=== PATIENT | male | born 1995 | race Caucasian/White ===

== ENCOUNTER 2017-09-22 02:47 | Emergency (ER) | payer OTHER ==
[2017-09-22] MEDS ORDERED: Azithromycin TAB* 250 MG PO ONE (04:16)
[2017-09-22] MEDS ORDERED: cefTRIAXone VIAL(*) 250 MG VIAL IM ONE (04:16)
[2017-09-22] MEDS ORDERED: Cephalexin CAP* 500 MG PO ONE (04:16)
[2017-09-22] MEDS ORDERED: Sulfamethox/Trimethoprim DS 800/160* TAB PO ONE (04:16)
--- NOTE | 2017-09-22 04:26 | ED ---
Suellen Mckeon Emily, scribed for Cl Hooper MD on 09/22/17 at 0408 . Skin Complaint - HPI Summary HPI Summary: This patient is a 22 year old M presenting to [facility] with a chief complaint of pain and swelling on R buttock that began one week ago and has worsened gradually. The patient rates the pain 6/10 in severity. Symptoms aggravated by position. Symptoms alleviated by nothing. Patient reports swelling in groin area , subjective fever, and purulent drainage. Pt reports he had receptive anal intercourse one week ago, and was later told his partner either tested positive for gonorrhea or chlamydia. - History of Current Complaint Chief Complaint: EDRashSkinAbscess Time Seen by Provider: 09/22/17 03:56 Stated Complaint: PAIN IN RT LEG/ GROIN Hx Obtained From: Patient Onset/Duration: Started Weeks Ago, Still Present Timing: Constant Onset Severity: Moderate Current Severity: Moderate Pain Intensity: 6 Pain Scale Used: 0-10 Numeric Aggravating Symptom(s): Other: - Position Alleviating Symptom(s): Nothing Associated Signs & Symptoms: Fever, Drainage - Allergy/Home Medications Allergies/Adverse Reactions: Allergies Allergy/AdvReac Type Severity Reaction Status Date / Time No Known Allergies Allergy Verified 09/22/17 02:56 PMH/Surg Hx/FS Hx/Imm Hx Previously Healthy: No Sensory History: Reports: Hx Contacts or Glasses Psychiatric History: Reports: Hx Attention Deficit Hyperactivity Disorder Infectious Disease History: Yes Infectious Disease History: Reports: Hx Human Immunodeficiency Virus (HIV) Denies: Traveled Outside the [place] in Last 30 Days - Family History Known Family History: Negative: Cardiac Disease, Diabetes - Social History Occupation: Student Lives: Dormitory/Roommates Review of Systems Positive: Fever Positive: Edema Positive: Other - Positive abscess and drainage All Other Systems Reviewed And Are Negative: Yes Physical Exam - Summary Physical Exam Summary: Appearance: Well-appearing, Well-nourished, lying in bed comfortably Skin: Warm, dry, no obvious rash, Two lesions on the R buttock, one small and one large. The small one small is 2-3 cm of induration with some erythema. The larger one is 5 cm of erythema with some central opening thats draining some blood and a little bit of pus. Neither one feels indurated, just a little bit fluctuant. Eyes: sclera anicteric, no conjunctiva pallor ENT: mucous membranes moist, pharynx appears normal Neck: Supple, nontender Respiratory: Clear to auscultation, no signs of respiratory distress Cardiovascular: Normal S1, S2. No murmurs. Normal distal pulses in tibial and radial bilaterally. Abdomen: Soft, nontender, normal active bowel sounds present Musculoskeletal: Normal, Strength/ROM Intact Neurological: A&Ox3, awake and alert, mentation is normal, speech is fluent and appropriate Psychiatric: affect is normal, does not appear anxious or depressed Triage Information Reviewed: Yes Vital Signs On Initial Exam: Initial Vitals Temp Pulse Resp BP Pulse Ox 100.4 F 107 18 138/88 99 09/22/17 02:52 09/22/17 02:52 09/22/17 02:52 09/22/17 02:52 09/22/17 02:52 Vital Signs Reviewed: Yes Procedures - Ultrasound Ultrasound: normal - Screening bedside ultrasound with linear array probe does not reveal any abscess in either location Diagnostics - Vital Signs Vital Signs Temp Pulse Resp BP Pulse Ox 09/22/17 02:52 100.4 F 107 18 138/88 99 - Laboratory Lab Statement: Any lab studies that have been ordered have been reviewed, and results considered in the medical decision making process. Course/Dx - Course Assessment/Plan: 22 y/o homosexual male with h/o HIV infection, on HAART with good counts per his hx. 2 problems, first is skin infection right buttock that does not appear to have definitely abscessed by exam or US. This will be treated with combination oral antibiotics, bactrim and keflex. Second, there is a risky exposure that will be treated. Formal testing would not be helpful as it is likely to be normal in the absence of symptoms and he would need treatment anyway. - Diagnoses Provider Diagnoses: Cellulitis, Exposure to STD Discharge - Sign-Out/Discharge Documenting (check all that apply): Discharge/Admit/Transfer - Discharge Plan Condition: Good Disposition: HOME Prescriptions: Cefadroxil CAP* [Duricef CAP*] 500 mg PO BID #20 cap Sulfamethox/Trimethoprim DS* [Bactrim DS 800/160 TAB*] 1 tab PO BID #20 tab Patient Education Materials: Cellulitis (ED) Referrals: [facility] [place] - Richie RASCON [Primary Care Provider] - Additional Instructions: If you are getting worse, or if the swollen areas are getting worse after 48 hrs of treatment, we will need to see you back. The other antibiotics you were given here should cover you for the potential exposure a week ago. - Billing Disposition and Condition Condition: GOOD Disposition: HOME The documentation as recorded by the Suellen ambrocio Emily accurately reflects the service I personally performed and the decisions made by me, Cl Hooper MD.
[2017-09-22] MEDS ORDERED: Lidocaine 1% INJ* 10 MG/ML 30 ML SDV ONE (04:40)
[2017-09-22] MEDS ORDERED: Lidocaine 1%* 5 ML VIAL ONE (04:41)
[2017-09-22 05:00] VITALS: BP 130/79
== END 2017-09-22 05:00 | disposition home or self-care (01) ==
LOC: ED 02:47
DX: L03.317 Cellulitis of buttock (principal); Z20.2 Contact with and (suspected) exposure to infections with a predominantly sexual mode of transmission; B20 Human immunodeficiency virus [HIV] disease; F90.9 Attention-deficit hyperactivity disorder, unspecified type
CPT/HCPCS: 96374; 99283; A9270-GY; J0696